=== PATIENT | female | born 1950 | race Caucasian/White ===

== ENCOUNTER 2022-05-19 13:27 | Emergency (ER) | payer MEDICARE, BC ==
[2022-05-19] MEDS ORDERED: Sodium Chloride 0.9% 10 ML Syringe FLUSH PRN (13:42)
[2022-05-19] MEDS ORDERED: Ketorolac 30 MG/ML SDV IVPUSH ONE (14:04)
[2022-05-19] MEDS ORDERED: Morphine 2 MG/ML SYRINGE IVPUSH ONE (14:04)
[2022-05-19] MEDS ORDERED: Ondansetron 4 MG/2 ML SDV IVPUSH ONE (14:04)
[2022-05-19] MEDS ORDERED: Sodium Chloride 0.9% 1,000 ML IV SCH (14:15)
[2022-05-19 14:19] LABS: ESTIMATED GFR 59 mL/min (>60)
[2022-05-19] MEDS ORDERED: Iopamidol 755 Mg/ML 75 ML Bottle IV ONE (14:29)
== END 2022-05-19 16:25 | disposition home or self-care (01) ==
LOC: FB.ED 13:27
DX: N13.2 Hydronephrosis with renal and ureteral calculous obstruction (principal); E86.0 Dehydration
CPT/HCPCS: 36415; 74177; 80053; 81001; 82150; 83690; 84443; 85025; 96361; 96374; 96375; 99284; J1885; J2270; J2405; J3490; J7030; Q9967